=== PATIENT | female | born 1960 | race American Indian/Alaskan Native ===

== ENCOUNTER 2017-01-07 08:47 | Outpatient (CLI) | payer BC ==
--- NOTE | 2017-01-07 10:20 | Mammography Report ---
Bilateral mammogram: Compared to 04/10/14. CAD study utilized. Findings: Scattered lingular parenchyma bilaterally. No mass or microcalcification. Benign axillary nodes. Impression: Benign findings. Annual followup recommended. BI-RADS CATEGORY: 2 = Benign ACR BI-RADS MAMMOGRAPHIC CODES: 0 = Needs additional imaging evaluation; 1 = Negative; 2 = Benign; 3 = Probably benign; 4 = Suspicious; 5 = Malignant; 6 = Known biopsy-proven malignancy COMMENT: 1. Dense breast tissue, i.e., adenosis, fibrocystic changes, etc., may obscure an underlying neoplasm. 2. Approximately 10% of cancers are not detected with mammography. 3. A negative mammography report should not delay biopsy if a clinically suspicious mass is present. COMMENT: Patient follow-up letters are generated in [employer].
== END 2017-01-07 08:48 | disposition home or self-care (01) ==
LOC: MAMMO 08:47
PROVIDERS: ATTEND Obstetrics & Gynecology
DX: Z12.31 Encounter for screening mammogram for malignant neoplasm of breast (principal)
CPT/HCPCS: 77067; G0202

== ENCOUNTER 2017-01-12 19:52 | Emergency (ER) | payer BC ==
[2017-01-12 20:28] VITALS: BP 113/71
[2017-01-12 20:53] LABS: Basophils % (Auto) 0.9 % (0.0-1.8); Eosinophils % (Auto) 3.3 % (0.0-4.3); Hematocrit 38.1 % (30.3-42.9); Hemoglobin 13.1 gm/dl (10.1-14.3); Mean Corpuscular HGB Conc 34 % (30-34); Mean Corpuscular Hemoglobin 33 pg (28-32); Mean Corpuscular Volume 94 fl (79-97); Platelet Count 155 K/mm3 (140-440); Red Blood Count 4.03 M/mm3 (3.65-5.03); Red Cell Distribution Width 13.6 % (13.2-15.2); White Blood Count 4.3 K/mm3 (4.5-11.0)
[2017-01-12] MEDS ORDERED: TORADOL IM ONE (21:12)
[2017-01-12] MEDS ORDERED: NAPROSYN PO ONE (21:21)
--- NOTE | 2017-01-12 21:48 | Emergency Department Report ---
ED General Adult HPI - General Chief complaint: Vaginal Bleeding Stated complaint: DIZZINESS, VAGINAL BLEEDING Time Seen by Provider: 01/12/17 21:11 Source: patient Mode of arrival: Ambulatory Limitations: No Limitations - History of Present Illness Initial comments: Patient is a 56-year-old female past medical history menopause who presents with vaginal bleeding and lightheadedness. Patient states that she's had vaginal bleeding for the last 4 days. The onset of the bleeding is intermittent sometimes constant slow flow but today she noticed heavier gush of blood today. She follows up with my [facility] and she was for referred to come to the emergency department. Patient states initially she had some pelvic pain as a 2 out 10,080-type pain nothing made it better or worse. Patient currently right now is not in pain. Severity scale (0 -10): 2 - Related Data Home Medications Medication Instructions Recorded Confirmed Last Taken Ferrous Sulfate [Iron Supplement 1 tab PO DAILY 03/09/13 03/09/13 03/05/13 325 Mg tab] Vitamin B Complex [Super B-50 1 tab PO DAILY 03/09/13 03/09/13 03/05/13 Complex] Previous Rx's Medication Instructions Recorded Last Taken Type Naproxen 250 mg PO BID #20 tablet 01/12/17 Unknown Rx Allergies Allergy/AdvReac Type Severity Reaction Status Date / Time No Known Allergies Allergy Unverified 03/09/13 12:39 ED Review of Systems ROS: Stated complaint: DIZZINESS, VAGINAL BLEEDING Other details as noted in HPI Constitutional: denies: chills, fever Eyes: denies: eye pain, eye discharge, vision change ENT: denies: ear pain, throat pain Respiratory: denies: cough, shortness of breath, wheezing Cardiovascular: denies: chest pain, palpitations Endocrine: no symptoms reported Gastrointestinal: denies: abdominal pain, nausea, diarrhea Genitourinary: as per HPI. denies: urgency, dysuria, discharge Musculoskeletal: denies: back pain, joint swelling, arthralgia Skin: denies: rash, lesions Neurological: denies: headache, weakness, paresthesias Psychiatric: denies: anxiety, depression Hematological/Lymphatic: denies: easy bleeding, easy bruising ED Past Medical Hx - Past Medical History Previous Medical History?: No - Surgical History Past Surgical History?: No - Social History Smoking Status: Never Smoker Substance Use Type: None - Medications Home Medications: Home Medications Medication Instructions Recorded Confirmed Last Taken Type Ferrous Sulfate [Iron Supplement 1 tab PO DAILY 03/09/13 03/09/13 03/05/13 History 325 Mg tab] Vitamin B Complex [Super B-50 1 tab PO DAILY 03/09/13 03/09/13 03/05/13 History Complex] Naproxen 250 mg PO BID #20 tablet 01/12/17 Unknown Rx ED Physical Exam - General Limitations: No Limitations General appearance: alert, in no apparent distress - Head Head exam: Present: atraumatic, normocephalic - Eye Eye exam: Present: normal appearance - ENT ENT exam: Present: mucous membranes moist - Neck Neck exam: Present: normal inspection - Respiratory Respiratory exam: Present: normal lung sounds bilaterally. Absent: respiratory distress - Cardiovascular Cardiovascular Exam: Present: regular rate, normal rhythm. Absent: systolic murmur, diastolic murmur, rubs, gallop - GI/Abdominal GI/Abdominal exam: Present: soft, normal bowel sounds - Extremities Exam Extremities exam: Present: normal inspection - Back Exam Back exam: Present: normal inspection - Neurological Exam Neurological exam: Present: alert, oriented X3 - Psychiatric Psychiatric exam: Present: normal affect, normal mood - Skin Skin exam: Present: warm, dry, intact, normal color. Absent: rash ED Course Vital Signs 01/12/17 01/12/17 20:24 20:27 Temperature 97.9 F Pulse Rate 86 Respiratory 18 18 Rate Blood Pressure 113/71 [Right] O2 Sat by Pulse 97 99 Oximetry ED Medical Decision Making - Lab Data Result diagrams: 01/12/17 20:33 Labs 01/12/17 01/12/17 01/12/17 20:32 20:33 20:33 WBC 4.3 L RBC 4.03 Hgb 13.1 Hct 38.1 MCV 94 MCH 33 H MCHC 34 RDW 13.6 Plt Count 155 Lymph % (Auto) 35.3 H Giles % (Auto) 10.8 H Eos % (Auto) 3.3 Baso % (Auto) 0.9 Lymph # 1.5 Giles # 0.5 Eos # 0.1 Baso # 0.0 Seg Neutrophils % 49.7 Seg Neutrophils # 2.1 HCG, Quant < 2 Blood Type O POSITIVE Antibody Screen Negative - Medical Decision Making Chief medical diagnosis: Dysfunctional uterine bleeding Differential medical diagnosis fibroid uterus, UTI CBC, type and screen, UA, hCG Quant and oral pain medication except Patient's hemoglobin level is within normal limits patient most likely has dysfunctional uterine bleeding secondary to menopause. Patient has recently just started menopause. She's had some intermittent bleeding. Still patient will need further workup by [facility] [employer] [facility] as uterine cancer is in the differential for older females with vaginal bleeding. I will have patient follow-up with [facility]. Critical care attestation.: If time is entered above; I have spent that time in minutes in the direct care of this critically ill patient, excluding procedure time. ED Disposition Clinical Impression: Vaginal bleeding Disposition: DC- TO HOME OR SELFCARE Is pt being admited?: No Condition: Stable Instructions: Dysfunctional Uterine Bleeding (ED) Additional Instructions: Labs 01/12/17 01/12/17 01/12/17 20:32 20:33 20:33 WBC 4.3 L RBC 4.03 Hgb 13.1 Hct 38.1 MCV 94 MCH 33 H MCHC 34 RDW 13.6 Plt Count 155 Lymph % (Auto) 35.3 H Giles % (Auto) 10.8 H Eos % (Auto) 3.3 Baso % (Auto) 0.9 Lymph # 1.5 Giles # 0.5 Eos # 0.1 Baso # 0.0 Seg Neutrophils % 49.7 Seg Neutrophils # 2.1 HCG, Quant < 2 Blood Type O POSITIVE Antibody Screen Negative Prescriptions: Naproxen 250 mg PO BID #20 tablet Referrals: JOYCELYN BARCLAY MD [Staff Physician] - 3-5 Days
== END 2017-01-12 22:00 | disposition home or self-care (01) ==
LOC: ED 19:52
DX: N93.9 Abnormal uterine and vaginal bleeding, unspecified (principal)
CPT/HCPCS: 36415; 84702; 85025; 86850; 86900; 86901

== ENCOUNTER 2018-07-21 07:05 | Outpatient (CLI) | payer BC ==
--- NOTE | 2018-07-21 08:55 | Mammography Report ---
BILATERAL DIGITAL SCREENING MAMMOGRAM with CAD: 07/21/18 07:05:00 CLINICAL: Routine screening. COMPARISON: 01/07/17 FINDINGS: There are bilateral scattered areas of fibroglandular density.No mass, architectural distortion or suspicious calcifications. IMPRESSION: No mammographic evidence of malignancy. BI-RADS CATEGORY: 1 -- Negative RECOMMENDATION: Routine mammographic screening in one year. COMMENT: Patient follow-up letters are generated by our [employer] application.
== END 2018-07-21 07:06 | disposition home or self-care (01) ==
LOC: MAMMO 07:05
PROVIDERS: ATTEND Obstetrics & Gynecology
DX: Z12.31 Encounter for screening mammogram for malignant neoplasm of breast (principal)
CPT/HCPCS: 77067

== ENCOUNTER 2018-08-02 10:54 | Outpatient (CLI) | payer BC ==
--- NOTE | 2018-08-02 15:03 | Magnetic Resonance Report ---
MR CERVICAL SPINE WITH AND WITHOUT CONTRAST HISTORY: Cervical disc disorder with myelopathy. TECHNIQUE: Axial T2 and T2 gradient. Sagittal T1, T2 and STIR. COMPARISON: No relevant comparisons at this facility. FINDINGS: The cervical spinal cord is normal size and signal intensity throughout. No abnormal intramedullary signal is detected. No central canal stenosis is identified. Normal height and alignment of the cervical vertebral bodies. Normal bone marrow signal. There is mild diffuse disc desiccation and narrowing. Disc space narrowing is most pronounced at C5-6 and C7-T1 The facet joints are in appropriate relationship. No significant joint pathology or hypertrophic changes. The paraspinal soft tissues are within normal limits. C2-3: No significant abnormality. C3-4: No significant abnormality. C4-5: A mild posterior bulging disc is identified. A small right paracentral annular tear is also identified. No significant protrusion. C5-6: A mild diffuse posterior bulging disc is identified. C6-7: A focal midline annular tear and small disc protrusion is identified without mass effect. C7-T1: A mild diffuse posterior bulging disc is identified. A small right paracentral annular tear and small disc protrusion are identified without obvious mass effect. No abnormal enhancement is demonstrated following IV contrast. IMPRESSION: Mild multilevel degenerative disc disease. Right paracentral annular tear at C4-5 without protrusion. Midline annular tear and small disc protrusion at C6-7. Right paracentral annular tear and small disc protrusion at C7-T1. No large herniation is identified with mass effect on the cord or nerve roots.
== END 2018-08-02 10:55 | disposition home or self-care (01) ==
LOC: MRI 10:54
PROVIDERS: ATTEND Physician Assistant Medical
DX: M50.30 Other cervical disc degeneration, unspecified cervical region (principal); M50.23 Other cervical disc displacement, cervicothoracic region; M48.02 Spinal stenosis, cervical region
CPT/HCPCS: 72156; A9577

== ENCOUNTER 2018-10-16 11:34 | Outpatient (CLI) | payer BC ==
--- NOTE | 2018-10-16 13:20 | XRay Report ---
PELVIS AND RIGHT HIP HISTORY: M25.551 PAIN IN RIGHT HIP COMPARISON: None. TECHNIQUE: AP view of the pelvis with AP and lateral view of the right hip obtained. FINDINGS: Bones: No fracture or dislocation. Joint spaces: Maintained. Mild osteoarthritis. Soft Tissues: Normal. Additional findings: Multiple gas pattern. Phleboliths in the pelvis. IMPRESSION: Mild osteoarthritis but otherwise negative right hip. Signer Name: Devan Tafoya MD Signed: 10/16/2018 1:15 PM Workstation Name: [id number]
== END 2018-10-16 11:35 | disposition home or self-care (01) ==
LOC: XRAY 11:34
PROVIDERS: ATTEND Physician Assistant Medical
DX: M16.11 Unilateral primary osteoarthritis, right hip (principal)

== ENCOUNTER 2019-02-27 16:21 | Outpatient (CLI) | payer BC ==
--- NOTE | 2019-02-27 17:09 | XRay Report ---
CHEST 2 VIEWS INDICATION / CLINICAL INFORMATION: CHEST PAIN. COMPARISON: None currently available. FINDINGS: SUPPORT DEVICES: None. HEART / MEDIASTINUM: The heart size and pulmonary vasculature are normal. The aorta is normal in jaci timo. LUNGS / PLEURA: No significant pulmonary or pleural abnormality. No pneumothorax. ADDITIONAL FINDINGS: There is moderate thoracolumbar scoliosis. IMPRESSION: No acute findings. Signer Name: Adolfo Omer MD Signed: 02/27/2019 5:05 PM Workstation Name: [id number]
== END 2019-02-27 16:22 | disposition home or self-care (01) ==
LOC: XRAY 16:21
PROVIDERS: ATTEND Physician Assistant Medical
DX: R07.89 Other chest pain (principal)
CPT/HCPCS: 71046

== ENCOUNTER 2020-05-30 08:25 | Outpatient (CLI) | payer BC | END 2020-05-30 08:26 | disposition home or self-care (01) | LOC: ECHO 08:25 | PROVIDERS: ATTEND Internal Medicine Cardiovascular Disease | DX: I08.1 Rheumatic disorders of both mitral and tricuspid valves (principal); I49.3 Ventricular premature depolarization; R06.02 Shortness of breath | CPT/HCPCS: 93306 ==

== ENCOUNTER 2021-02-10 10:08 | Outpatient (CLI) | payer BC ==
--- NOTE | 2021-02-16 10:12 | Mammography Report ---
DIGITAL SCREENING MAMMOGRAM WITH CAD, 02/16/2021 CLINICAL INFORMATION / INDICATION: Routine screening mammography. SCREENING MAMMOGRAM TECHNIQUE: Digital bilateral 2D mammography was obtained in the craniocaudal and mediolateral obliqu e projections. This examination was interpreted with the benefit of Computer-Aided Detection analysis . COMPARISON: 07/21/2018. FINDINGS: Breast Density: There are scattered areas of fibroglandular density. No dominant mass, suspicious calcifications, or architectural distortion in either breast. IMPRESSION: No mammographic evidence of malignancy. Follow up recommendation: Routine yearly BI-RADS Category 1: Negative. A "normal" or negative report should not discourage follow up or biopsy of a clinically significant f inding. A written summary of these findings will be mailed to the patient. The patient will be entered into a mammography reporting system which will generate a reminder letter for the patient's next appointmen t at the appropriate interval. The [employer] recommends yearly mammograms starting at age 40 and continuing as l dena as a woman is in good health. Breast MRI is recommended for women with an approximate 20-25% or greater lifetime risk of breast cancer, including women with a strong family history of breast or ova tod cancer or who have been treated for Hodgkin's disease. Signer Name: Blayne Ahumada MD Signed: 02/16/2021 10:08 AM Workstation Name: [email or web address]
== END 2021-02-10 10:09 | disposition home or self-care (01) ==
LOC: MAMMO 10:08
PROVIDERS: ATTEND Physician Assistant Medical
DX: Z12.31 Encounter for screening mammogram for malignant neoplasm of breast (principal)
CPT/HCPCS: 77067

== ENCOUNTER 2021-07-31 10:21 | Outpatient (CLI) | payer BC ==
--- NOTE | 2021-07-31 12:14 | Mammography Report ---
DEXA BONE DENSITY SCAN INDICATION / CLINICAL INFORMATION: Z00.00. 60 years Female COMPARISON: None available. LUMBAR SPINE, L1-L4: - Bone mineral density (BMD) = 0.722 g/cm2. - T-score = -3.0 - Change (%) since most recent prior (if available): None available. LEFT HIP, NECK : - Bone mineral density (BMD) = 0.721 g/cm2. - T-score = -1.2 - Change (%) since most recent prior (if available): None available. IMPRESSION: 1. WHO Classification: Osteoporosis. Fracture Risk: High. 2. 10-Year Fracture Risk (FRAX) = Major Osteoporotic Not reported.% / Hip: Not reported.% FRAX generally not reported for patients with normal or osteoporotic BMD, in [id number] satinder ents younger than age 50, or in patients undergoing pharmacotherapy BMD Reporting Guidelines (ISCD, 2015) BMD Reporting in Postmenopausal Women and in Men Age 50 and Older - T-scores are preferred. - The WHO densitometric classification is applicable. BMD Reporting in Females Prior to Menopause and in Males Younger Than Age 50 - Z-scores, not T-scores, are preferred. This is particularly important in children. - A Z-score of -2.0 or lower is defined as below the expected range for age, and a Z-score above -2.0 is within the expected range for age. - Osteoporosis cannot be diagnosed in men under age 50 on the basis of BMD alone. - The WHO diagnostic criteria may be applied to women in the menopausal transition. http://www.iscd.org/official-positions/6029-etwu-krlassuf-positions-adult/ Signer Name: Gonzalez Elizalde MD Signed: 07/31/2021 11:59 AM Workstation Name: [email or web address]
== END 2021-07-31 10:22 | disposition home or self-care (01) ==
LOC: MAMMO 10:21
PROVIDERS: ATTEND Nurse Practitioner Gerontology
DX: M81.0 Age-related osteoporosis without current pathological fracture (principal)
CPT/HCPCS: 77080

== ENCOUNTER 2021-12-07 06:55 | Outpatient (CLI) | payer BC ==
[2021-12-07 09:50] LABS: Eosinophils # (Auto) 0.2 K/mm3 (0.0-0.4); Eosinophils % (Auto) 5.9 % (0.0-4.3); Hematocrit 41.2 % (30.3-42.9); Hemoglobin 13.8 gm/dl (10.1-14.3); Lymphocytes # (Auto) 1.3 K/mm3 (1.2-5.4); Lymphocytes % (Auto) 38.1 % (13.4-35.0); Mean Corpuscular HGB Conc 34 % (30-34); Mean Corpuscular Volume 94 fl (79-97); Monocytes # (Auto) 0.4 K/mm3 (0.0-0.8); Monocytes % (Auto) 10.6 % (0.0-7.3); Platelet Count 170 K/mm3 (140-440); Red Blood Count 4.39 M/mm3 (3.65-5.03); Red Cell Distribution Width 13.3 % (13.2-15.2)
[2021-12-07 10:18] LABS: Amorphous Crystals,Urine 3+; Bacteria,Urine 1+ /HPF (Negative); Mucus,Urine FEW /HPF
[2021-12-07 10:41] LABS: Alanine Aminotransferase 25 units/L (7-56); Albumin 4.5 g/dL (3.9-5); Blood Urea Nitrogen 10 mg/dL (7-17); Calcium 10.8 mg/dL (8.4-10.2); Chol/HDL Ratio 1.94 %; HDL Cholesterol 93 mg/dL (40-59); Hemolysis Index 5; LDL Cholesterol,Direct 89 mg/dL (50-130)
[2021-12-07 10:43] LABS: BUN/Creatinine Ratio 17
[2021-12-07 10:53] LABS: Color,Urine Yellow (Yellow)
[2021-12-07 11:41] LABS: Erythrocyte Sedimentation Rate 5 mm/Hr (0-20)
== END 2021-12-07 06:56 | disposition home or self-care (01) ==
LOC: LAB 06:55
PROVIDERS: ATTEND Internal Medicine
DX: Z00.00 Encounter for general adult medical examination without abnormal findings (principal); D72.829 Elevated white blood cell count, unspecified; E55.9 Vitamin D deficiency, unspecified; N39.0 Urinary tract infection, site not specified; R53.83 Other fatigue
CPT/HCPCS: 36415; 80053; 80061; 81001; 82306; 84443; 85025; 85652